=== PATIENT | female | born 1945 | race Caucasian/White ===

== ENCOUNTER → 2016-09-07 | Day surgery (SDC) | payer MEDICARE ==
[~2016-09-07] MED LIST: ASCO500C PO; CHOL20002 PO; FENTANYL PF 100 MCG/2 ML VIAL. IV PRN; HYDROMORPHONE 2 MG/ML VIAL. IV PRN; IV RINGERS,LACTATED 1000ML 1,000 ML IV SCH; LIDOCAINE 1% 1 ML SYRINGE. ID PRN; LIDOCAINE 2% PF Vial for OR 5 ML VIAL. ONE; MORPHINE SULFATE 2 MG/ML DISP.SYRIN. IV PRN; OMEG1CAP6 PO; ONDANSETRON PF 4 MG/2 ML VIAL. IV PRN; PROCHLORPERAZINE 10 MG/2 ML VIAL. IV PRN; PROPOFOL 40 ML IV ONE
[2016-09-07 10:35] VITALS: BP 144/76
--- NOTE | 2016-09-07 12:59 | HP ---
ADMIT DATE: 09/07/2016 REFERRING PHYSICIAN: ____. HISTORY OF PRESENT ILLNESS: This is a 70-year-old female whose past medical history is significant for hyperlipidemia, is seen for a screening colon exam, last exam was over 10 years ago. Family history negative for colon polyps or colon cancer, has daily bowel movements without diarrhea, constipation, melena and/or hematochezia. Weight and appetite are stable and she is otherwise without additional complaints. PAST MEDICAL HISTORY: Hyperlipidemia, status post hysterectomy and eye surgery. ALLERGIES: None. MEDICATIONS: Include vitamin D, vitamin C, and fish oil. SOCIAL HISTORY: She is a smoker. She is a social drinker. FAMILY HISTORY: Noncontributory. REVIEW OF SYSTEMS: Per records. PHYSICAL EXAMINATION: GENERAL: Reveals a well-nourished, well-developed female. VITAL SIGNS: Temperature is 98.3, pulse 82, respirations 18. HEENT: Normocephalic, atraumatic head. Pupils and extraocular muscles not tested. Sclerae anicteric. NECK: Supple. LUNGS: Clear. CARDIOVASCULAR: Reveals S1, S2 without S3 or S4 or appreciable murmur. ABDOMEN: Reveals a soft abdomen, normal bowel sounds, without appreciable hepatosplenomegaly. EXTREMITIES: Reveals no cyanosis, clubbing or edema. IMPRESSION: Colorectal screening is warranted at this time. Risks and benefits of procedure including the risk of hemorrhage or perforation during the operation have been discussed. The patient is willing to proceed at this time. I would like to thank ____ for allowing us to consult and participate in this patient's care. RYNE CONTRERAS MD DR: [email or web address] JOB#: [id number] / [id number]
== END | disposition home or self-care (01) ==
LOC: ENDOS 08:21
PROVIDERS: ATTEND Internal Medicine Gastroenterology
DX: Z12.11 Encounter for screening for malignant neoplasm of colon (principal); K64.0 First degree hemorrhoids; K57.30 Diverticulosis of large intestine without perforation or abscess without bleeding; E78.5 Hyperlipidemia, unspecified; Z90.710 Acquired absence of both cervix and uterus; Z87.39 Personal history of other diseases of the musculoskeletal system and connective tissue
CPT/HCPCS: 45378; J2704